=== PATIENT | male | born 1985 | race Asian ===

== ENCOUNTER 2019-05-13 19:47 | Emergency (ER) | payer BC ==
[~2019-05-13] VITALS: Ht 134.6 cm; Wt 63.5 kg
--- NOTE | 2019-05-13 20:28 | PHYS DOC ---
Past Medical History Past Medical History: No Pertinent History (KANE ZAPATA APRN) Past Surgical History: No Surgical History (KANE ZAPATA APRN) Alcohol Use: Occasionally Drug Use: None (KANE ZAPATA APRN) Adult General Chief Complaint Chief Complaint: MECHANICAL FALL HPI HPI Patient is a 33 year old [male] who presents with [facial pain after fall. Patient reports he had fallen on approximately 4 steps earlier today, and does not have any idea what time he had fallen. States he had slipped on the stairs and this caused the fall .does report he has been consuming large number of EtOH beverages over the last day. Denies altered level of consciousness, denies head, neck, back pain. Patient reports he is only concerned about this eye being swollen, and his nose bleeding. Reports all of his teeth feel like they're intact.] (KANE ZAPATA APRN) Review of Systems Review of Systems Constitutional: Denies fever or chills [] Eyes: Denies change in visual acuity, redness, or eye pain reports his eye is swollen shut, but when we open and he is able to see out of his eye. [] HENT: Denies nasal congestion or sore throat reports some discomfort along nose, bleeding from nose.[] Respiratory: Denies cough or shortness of breath [] Cardiovascular: No additional information not addressed in HPI [] GI: Denies abdominal pain, nausea, vomiting, bloody stools or diarrhea [] : Denies dysuria or hematuria [] Musculoskeletal: Denies back pain or joint pain [] Integument: Denies rash or skin lesions [] Neurologic: Denies headache, focal weakness or sensory changes [] Endocrine: Denies polyuria or polydipsia [] All other systems were reviewed and found to be within normal limits, except as documented in this note. (KANE ZAPATA APRN) Current Medications Current Medications Current Medications Medications (Trade) Dose Ordered Sig/Lester Start Time Stop Time Status Last Admin Dose Admin Ketorolac Tromethamine (Toradol 30mg Vial) 30 mg 1X ONCE 05/13/19 21:00 05/13/19 21:01 DC 05/13/19 20:46 30 MG (JAYCOB CAMPOS DO) Allergies Allergies Allergies Coded Allergies Type Severity Reaction Last Updated Verified No Known Drug Allergies 05/13/19 No (JAYCOB CAMPOS DO) Physical Exam Physical Exam Constitutional: Well developed, well nourished, no acute distress, non-toxic appearance. [] HENT: Normocephalic, atraumatic, bilateral external ears normal, oropharynx moist, no oral exudates, nose with bleeding from left naris, minimal, oozing. No specific source noted. Mostly dry blood noted septum appears midline. dentition intact. [] Eyes: PERRLA, EOMI, conjunctiva normal, no discharge. Minimal amount of watering from left eye. Left eye globe appears without erythema, without hyphema. Able to move eye. Surrounding tissue left eye and notably swollen, erythematous, tender. [] Neck: Normal range of motion, no tenderness, supple, no stridor. [] Cardiovascular:Heart rate regular rhythm, no murmur [] Lungs & Thorax: Bilateral breath sounds clear to auscultation [] Abdomen: Bowel sounds normal, soft, no tenderness, no masses, no pulsatile masses. [] Skin: Warm, dry, no erythema, no rash. [] Back: No tenderness, no CVA tenderness. [] Extremities: No tenderness, no cyanosis, no clubbing, ROM intact, no edema. [] Neurologic: Alert and oriented X 3, normal motor function, normal sensory function, no focal deficits noted. [] Psychologic: Affect normal, judgement normal, mood normal. [] (KANE ZAPATA APRN) Current Patient Data Vital Signs Vital Signs Date Time Temp Pulse Resp B/P (MAP) Pulse Ox O2 Delivery O2 Flow Rate FiO2 05/13/19 20:45 103 15 98 05/13/19 20:00 98.7 133/75 (94) Room Air 98.7 (JAYCOB CAMPOS DO) EKG EKG [] (KANE ZAPATA APRN) Radiology/Procedures Radiology/Procedures []indings: There is no loss of vertebral body stature. There is no prevertebral soft tissue swelling. The vertebral bodies are well aligned. The C1-C2 relationship is normal. The visualized osseous structures appear normal. There is mild reversal of the normal cervical lordosis which can be positional or can be secondary to muscle spasm. Evaluation of the central canal is limited without contrast. Impression: No acute findings. Clinical correlation suggested. End impression CT maxillofacial without contrast History: Pain injury to left orbit and fall Axial helical images of the face were obtained without contrast. Axial, sagittal and coronal reconstruction was performed. FINDINGS: There is a large fracture of the medial wall of the left orbit with significant depression of multiple fragments medially into the ethmoid air cells. The orbital floor appears intact. There is fractures through the nasal ala bilaterally. The nasal septum is mildly deviated to the left. The left maxillary sinus is slightly small and there is moderately compressive thickening in the maxillary sinuses bilaterally. The right frontal sinus is immature. There is occlusion of the left ostiomeatal complex. There is significant air in the orbit. The globe appears intact. Impression: 1. Large medial wall fracture of the left orbit. 2. Minimally displaced fractures the nasal ala bilaterally. 3. Moderate sinus disease with occlusion of the left ostiomeatal complex. End impression (KANE ZAPATA APRN) Course & Med Decision Making Course & Med Decision Making Pertinent Labs and Imaging studies reviewed. (See chart for details) While awaiting imaging, patient advises nurse he wants to leave, and will come back tomorrow for his results. Our advises patient, through dairy equipment repairer phone, that he should wait for his results. Patient again advises he wants to go. Patient signed AMA form at this time. Patient also to waiting room, converses with individual there, and asked to return to ER. Provider discusses again with patient importance of waiting for imaging to ensure there is no fracture. Patient agrees to wait, patient agrees to receive pain medications at this time, which had previously been offered to him by nurse, prior to him leaving AMA. Reviewed imaging results. Re-evaluation of patient eye. Extraocular motor intact, able to move eye without limitations, vision remains intact. [Discussed at length with patient his orbital fracture, and importance of following up or going today to be evaluated at the facility able to manage these fractures. Patient reports numerous times that he is concerned over the cost, he rather just go home, and he does not want to go to the hospital. Advised patient that he does have insurance, and is interested may very well cover this, and he needs to be evaluated, and going home is not in his best interest. Patient repeats again he does not want to stay, he does not want to go to another hospital, he just wants to go home. Advised patient of risks of leaving, with potential for loss of vision, infection, for worsening condition. She reports he again is not concerned he would rather just go home. Patient reports he just wants some pain medications and wants to go home, reports he wants to just follow up tomorrow or in a couple days after he looks his employer know that he can be there. Advised patient again it is important to have this evalua axel today and not wait days or several days later. We will not give him pain medications if he is leaving this medical advice, as the discomfort is due to fracturing his orbit that needs to be repaired. Advised him additionally if he will be staying in the hospital, he will receive pain medications. Patient again reports he does not want to stay. Patient asks that he'll be getting A bill for this visit, advised patient that he most likely will as he was evaluated and had imaging performed. Patient reports he doesn't continue just going to leave. At this time patient hangs up E web producer phone, and walks out of emergency room. Conversation with patient through language line and [place] dairy equipment repairer.] (KANE ZAPATA APRN) Dragon Disclaimer Dragon Disclaimer This electronic medical record was generated, in whole or in part, using a voice recognition dictation system. (KANE ZAPATA APRN) Departure Departure Impression: Primary Impression: Left orbit fracture Additional Impression: Nasal septum fracture Disposition: 07 AGAINST MEDICAL ADVICE Condition: GUARDED Patient Instructions: Discharge Against Medical Advice Attending Signature Attending Signature I have reviewed the PA/STEWARD/STEWARDESS THIRD's note and plan of care. I was available for consultation as needed during the patient's visit in the emergency department. I agree with the clinical impression, plan, and disposition. (JAYCOB CAMPOS DO) Problem Qualifiers Primary Impression: Left orbit fracture Encounter type: initial encounter Fracture type: closed Qualified Codes: S02.82XA - Fracture of other specified skull and facial bones, left side, initial encounter for closed fracture Additional Impression: Nasal septum fracture Encounter type: initial encounter Fracture type: closed Qualified Codes: S02.2XXA - Fracture of nasal bones, initial encounter for closed fracture KANE ZAPATA APRN May 13, 2019 20:28 JAYCOB CAMPOS DO May 14, 2019 05:25
[2019-05-13 20:45] VITALS: BP 118/71
[2019-05-13] MEDS ORDERED: KETOROLAC 30 MG/ML VIAL. IM ONE (21:00)
--- NOTE | 2019-05-13 21:10 | RAD ---
CT Head W/O Contrast: History: Fall, left eye trauma Comparison: none Axial images were obtained without contrast. The adams and white matter appears normal and symmetrical for the patients age. There is no mass effect, extraaxial fluid collections or hydrocephalus. There is no gross bleed. There is no focal loss of adams-white matter distinction to suggest acute ischemia, i.e. stroke. Impression: No acute findings. End impression CT C-Spine without contrast: Clinical History: Technique: Axial helical images of the cervical spine were obtained without contrast, axial coronal and sagittal reconstruction was performed. Findings: There is no loss of vertebral body stature. There is no prevertebral soft tissue swelling. The vertebral bodies are well aligned. The C1-C2 relationship is normal. The visualized osseous structures appear normal. There is mild reversal of the normal cervical lordosis which can be positional or can be secondary to muscle spasm. Evaluation of the central canal is limited without contrast. Impression: No acute findings. Clinical correlation suggested. End impression CT maxillofacial without contrast History: Pain injury to left orbit and fall Axial helical images of the face were obtained without contrast. Axial, sagittal and coronal reconstruction was performed. FINDINGS: There is a large fracture of the medial wall of the left orbit with significant depression of multiple fragments medially into the ethmoid air cells. The orbital floor appears intact. There is fractures through the nasal ala bilaterally. The nasal septum is mildly deviated to the left. The left maxillary sinus is slightly small and there is moderately compressive thickening in the maxillary sinuses bilaterally. The right frontal sinus is immature. There is occlusion of the left ostiomeatal complex. There is significant air in the orbit. The globe appears intact. Impression: 1. Large medial wall fracture of the left orbit. 2. Minimally displaced fractures the nasal ala bilaterally. 3. Moderate sinus disease with occlusion of the left ostiomeatal complex. End impression PQRS Compliance Statement: One or more of the following individualized dose reduction techniques were utilized for this examination: 1. Automated exposure control 2. Adjustment of the mA and/or kV according to patient size 3. Use of iterative reconstruction technique Electronically signed by: Osvaldo Reese III, MD (05/13/2019 9:08 PM) [facility]
== END 2019-05-13 22:04 | disposition left against medical advice (07) ==
LOC: ER 19:47
DX: S02.82XA Fracture of other specified skull and facial bones, left side, initial encounter for closed fracture (principal); S02.2XXA Fracture of nasal bones, initial encounter for closed fracture; W10.8XXA Fall (on) (from) other stairs and steps, initial encounter; Y93.89 Activity, other specified; Y92.89 Other specified places as the place of occurrence of the external cause; Y99.8 Other external cause status
CPT/HCPCS: 70450; 70486; 72125; 96372; J1885; 99284-25

== ENCOUNTER 2021-10-29 17:52 | Emergency (ER) | payer BC ==
[~2021-10-29] VITALS: Ht 157.5 cm; Wt 63.0 kg
[2021-10-29] MEDS ORDERED: IBUPROFEN 200 MG TABLET. PO ONE (19:15)
--- NOTE | 2021-10-29 19:43 | RAD ---
STUDY: US DPLX VENOUS EXTREMITY LOWER LT INDICATION: Fall, pain. TECHNIQUE: Color-flow and pulsed wave duplex ultrasound with compression of venous structures of the left lower extremity. COMPARISON: None available. FINDINGS: Duplex ultrasound with compression of the deep venous structures of the left lower extremity from the common femoral vein through the popliteal vein is negative for DVT. The posterior tibial and peroneal veins are segmentally visualized and patent where seen. Normal veno us waveforms and augmentation are noted throughout. IMPRESSION: No deep venous thrombosis of the left lower extremity. Electronically signed by: Rigoberto Mendoza MD (10/29/2021 7:41 PM) [facility]
--- NOTE | 2021-10-29 19:43 | RAD ---
Exam: XR LT TIBIA + FIBULA History: Fall, pain Comparison: None. Findings: Osseous mineralization is normal. No acute fracture or dislocaton. No significant degenerative change s. Soft tissues are unremarkable. Impression: 1. No acute osseous abnormality in the left tibia and fibula. Electronically signed by: Rigoberto Mendoza MD (10/29/2021 7:41 PM) [facility]
[2021-10-29 20:40] VITALS: BP 120/78
[2021-10-29] MEDS ORDERED: IBUP-1007 PO (20:52)
--- NOTE | 2021-10-29 20:53 | PHYS DOC ---
Past Medical History Past Medical History: No Pertinent History Past Surgical History: No Surgical History Smoking Status: Current Every Day Smoker Alcohol Use: Occasionally Drug Use: None Adult General Chief Complaint Chief Complaint: LOWEREXTREMITY INJURY HPI HPI Patient is a 36 year old male presents with left calf pain has been present for the last 2 days. Patient states that he bumped his leg on a chair or table and is really not have much discomfort at the time. Over the last 48 hours she has had swelling and tenderness as well as pain with ambulation. He does not have any numbness or tingling distally. No trauma elsewhere. Review of Systems Review of Systems Constitutional: Denies fever or chills [] Eyes: Denies eye pain [] HENT: Denies sore throat [] Respiratory: Denies shortness of breath [] Cardiovascular: No chest pain GI: Denies abdominal pain Musculoskeletal: Denies back pain or joint pain, admits to left calf pain [] Integument: Denies rash or skin lesions [] Neurologic: Denies headache, focal weakness or sensory changes [] Psychiatric: No hallucinations All other systems were reviewed and found to be within normal limits, except as documented in this note. Current Medications Current Medications Current Medications Medications (Trade) Dose Ordered Sig/Lester Start Time Stop Time Status Last Admin Dose Admin Ibuprofen (Motrin) 600 mg 1X ONCE 10/29/21 19:15 10/29/21 19:16 DC 10/29/21 19:10 600 MG Allergies Allergies Allergies Coded Allergies Type Severity Reaction Last Updated Verified No Known Drug Allergies 05/13/19 No Physical Exam Physical Exam Constitutional: Well developed, well nourished, no acute distress, non-toxic appearance. [] HENT: Normocephalic, atraumatic, bilateral external ears normal, mucosa moist, no oral exudates, nose normal. [] Eyes: PERRLA, EOMI, conjunctiva normal, no discharge. [] Neck: Normal range of motion, supple, no stridor. [] Cardiovascular:Heart rate regular rhythm Lungs & Thorax: No respiratory distress Abdomen: no masses, no distention [] Skin: Warm, dry, no erythema, no rash. [] Extremities: No cyanosis, no clubbing, ROM intact, left calf tenderness with mild swelling. No tenseness on palpation Neurologic: Alert and oriented, normal motor function, normal sensory function, no focal deficits noted. [] Psychologic: Affect normal, judgement normal, mood normal. [] Current Patient Data Vital Signs Vital Signs Date Time Temp Pulse Resp B/P (MAP) Pulse Ox O2 Delivery O2 Flow Rate FiO2 10/29/21 18:15 97.3 86 18 117/72 (87) 86 Room Air 97.3 EKG EKG [] Radiology/Procedures Radiology/Procedures PATIENT: GUME SOLORIO ACCOUNT: [id number] : 1985 LOCATION: ER AGE: 36 SEX: M EXAM STATUS: REG ER ORD. PHYSICIAN: YOHANA PEREZ MD REASON: fall, pain PROCEDURE: TIBIA FIBULA LEFT Exam: XR LT TIBIA + FIBULA History: Fall, pain Comparison: None. Findings: Osseous mineralization is normal. No acute fracture or dislocaton. No significant degenerative changes. Soft tissues are unremarkable. Impression: 1. No acute osseous abnormality in the left tibia and fibula. Electronically signed by: Rigoberto Mendoza MD (10/29/2021 7:41 PM) [facility] DICTATED and SIGNED BY: RIGOBERTO MENDOZA MD DATE: 10/29/21 [id number] ATIENT: GUME SOLORIO ACCOUNT: [id number] : 1985 LOCATION: ER AGE: 36 SEX: M EXAM STATUS: REG ER ORD. PHYSICIAN: YOHANA PEREZ MD REASON: fall PROCEDURE: VENOUS LOWER EXTREMITY LEFT STUDY: US DPLX VENOUS EXTREMITY LOWER LT INDICATION: Fall, pain. TECHNIQUE: Color-flow and pulsed wave duplex ultrasound with compression of venous structures of the left lower extremity. COMPARISON: None available. FINDINGS: Duplex ultrasound with compression of the deep venous structures of the left lower extremity from the common femoral vein through the popliteal vein is negative for DVT. The posterior tibial and peroneal veins are segmentally visualized and patent where seen. Normal venous waveforms and augmentation are noted throughout. IMPRESSION: No deep venous thrombosis of the left lower extremity. Electronically signed by: Rigoberto Mendoza MD (10/29/2021 7:41 PM) [facility] DICTATED and SIGNED BY: RIGOBERTO MENDOZA MD DATE: 10/29/[id number] 0 Course & Med Decision Making Course & Med Decision Making Pertinent Labs and Imaging studies reviewed. (See chart for details) This is a [id number] male with left calf pain. X-ray of the left tib-fib and venous Doppler ultrasound of the left lower extremity are both unremarkable. Patient was given some Motrin with some relief. We will have him keep his leg elevated and continue to use Motrin 600 mg, 4 times per day as needed. Follow- up with his primary care physician as needed. Return to the emergency department if pain becomes worse, we have effectively ruled out compartment syndrome on exam at this time, he is stable for discharge. Dragon Disclaimer Dragon Disclaimer This electronic medical record was generated, in whole or in part, using a voice recognition dictation system. Departure Departure Impression: Primary Impression: Contusion of left calf Disposition: HOME / SELF CARE / HOMELESS Condition: STABLE Referrals: NO PCP (PCP) Patient Instructions: Contusion Scripts Ibuprofen (IBUPROFEN) 600 Mg Tablet 600 MG PO PRN Q6HRS PRN for PAIN, #20 TAB take with food or milk Prov: YOHANA PEREZ MD 10/29/21 YOHANA PEREZ MD Oct 29, 2021 20:53
== END 2021-10-29 20:45 | disposition home or self-care (01) ==
LOC: ER 17:52
DX: S80.12XA Contusion of left lower leg, initial encounter (principal); F17.200 Nicotine dependence, unspecified, uncomplicated; W22.03XA Walked into furniture, initial encounter; Y93.89 Activity, other specified; Y92.89 Other specified places as the place of occurrence of the external cause; Y99.8 Other external cause status
CPT/HCPCS: 73590; 93971; 99284